=== PATIENT | male | born 2005 ===

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

== ENCOUNTER 2024-05-23 12:07 | Outpatient (CLI) | payer OTHER | END 2024-05-23 14:09 | disposition home or self-care (01) | LOC: RAD 12:07 | DX: S62.501A Fracture of unspecified phalanx of right thumb, initial encounter for closed fracture (principal) ==